=== PATIENT | male | born 1990 | race African-American/Black ===

== ENCOUNTER 2021-05-30 10:11 | Emergency (ER) | payer MEDICAID ==
[~2021-05-30] VITALS: Ht 175.3 cm; Wt 82.0 kg
[2021-05-30 10:26] VITALS: BP 116/78
[2021-05-30] MEDS ORDERED: ESCI-7 PO (10:29)
[2021-05-30] MEDS ORDERED: TRAZ-251 PO (10:29)
[2021-05-30] MEDS ORDERED: LORAZEPAM 0.5MG TABLET PO ONE (11:15)
[2021-05-30 11:41] LABS: BASOPHILS % 0.3 % (0.0-2.0); EOSINOPHILS % 0.4 % (0.0-5.0); HEMATOCRIT. 43.3 % (42.0-52.0); HEMOGLOBIN. 14.9 g/dL (14.0-18.0); LYMPHOCYTES % 19.4 % (20.0-50.0); MEAN CORPUSCULAR HEMOGLOBIN 32.4 pg (28.0-32.0); MEAN CORPUSCULAR VOLUME 93.9 fL (80.0-94.0); MEAN PLATELET VOLUME 6.6 fl (7.4-10.4); MONOCYTES % 8.2 % (2.0-8.0); NEUTROPHILS % 71.7 % (40.0-76.0); PLATELET 325 x1000/uL (130-400); RED BLOOD CELL COUNT 4.61 mill/uL (4.7-6.1); RED CELL DISTRIBUTION WIDTH 12.7 % (11.6-14.6)
[2021-05-30 11:50] LABS: CHLORIDE 109 mEq/L (98-107)
== END 2021-05-30 13:12 | disposition home or self-care (01) ==
LOC: ER 10:11
DX: R25.1 Tremor, unspecified (principal); I49.9 Cardiac arrhythmia, unspecified
CPT/HCPCS: 36415; 80053; 85025; 93005; 99284